=== PATIENT | female | born 1980 | race Caucasian/White ===

== ENCOUNTER → 2017-08-04 | Outpatient (CLI) | payer BC, OTHER | LOC: RAD 12:03 | DX: M79.672 Pain in left foot (principal) ==

== ENCOUNTER 2021-04-14 15:10 | Emergency (ER) | payer OTHER ==
[2021-04-14] MEDS ORDERED: BLISOVI FE 1.51 EACH PO (15:20)
[2021-04-14 16:13] LABS: BASO # 0.02 K/mm3 (0.02-0.10); EOS # 0.16 K/mm3 (0.04-0.40); HEMATOCRIT 39.8 % (37.0-47.0); HEMOGLOBIN 12.8 g/dL (12.5-16.0); LYMPH# 1.21 K/mm3 (1.50-4.00); MEAN CELL VOLUME 94 fl (78-100); MEAN CORPUSCULAR HEMOGLOBIN 30 pg (27-31); MEAN CORPUSCULAR HGB CONC 32 g/dL (33-37); MEAN PLATELET VOLUME 11.9 fl (7.4-10.4); NEU # 6.21 K/mm3 (1.40-6.50); PLATELET COUNT 163 K/mm3 (130-400); RED BLOOD COUNT 4.25 M/mm3 (4.10-5.30); RED CELL DISTRIBUTION WIDTH 12.3 % (11.5-14.5); WHITE BLOOD COUNT 8.2 K/mm3 (4.8-10.8)
[2021-04-14 16:23] LABS: POTASSIUM 3.9 mmol/L (3.5-5.1)
[2021-04-14 16:24] LABS: CALCIUM 9.4 mg/dL (8.3-10.5)
[2021-04-14 18:05] VITALS: BP 130/86
== END 2021-04-14 17:18 | disposition home or self-care (01) ==
LOC: ED 15:10
PROVIDERS: Family Medicine
DX: R42 Dizziness and giddiness (principal); R00.0 Tachycardia, unspecified

== ENCOUNTER 2022-01-29 19:34 | Emergency (ER) | payer OTHER ==
[~2022-01-29] VITALS: Ht 180.3 cm; Wt 72.7 kg
[~2022-01-29 19:34] MED LIST: BLISOVI FE 1.51 EACH PO
[2022-01-29 20:55] VITALS: BP 125/87
== END 2022-01-29 20:55 | disposition home or self-care (01) ==
LOC: ED 19:34
DX: S16.1XXA Strain of muscle, fascia and tendon at neck level, initial encounter (principal); S09.90XA Unspecified injury of head, initial encounter; Y04.2XXA Assault by strike against or bumped into by another person, initial encounter; Y92.219 Unspecified school as the place of occurrence of the external cause